=== PATIENT | male | born 1980 | race Caucasian/White ===

== ENCOUNTER 2020-10-04 16:01 | Emergency (ER) | payer SELFPAY ==
[~2020-10-04] VITALS: Ht 182.9 cm; Wt 127.0 kg
[2020-10-04] MEDS ORDERED: KEPPRA (16:09)
[2020-10-04] MEDS ORDERED: METFORMIN (16:09)
[2020-10-04] MEDS ORDERED: AMLODIPINE (16:09)
[2020-10-04] MEDS ORDERED: LEVETIRACETAM 1000MG PREMIX 100 ML IV ONE (16:45)
[2020-10-04] MEDS ORDERED: LORAZEPAM 1MG TABLET PO ONE (16:45)
[2020-10-04 16:50] LABS: BASOPHILS % 0.3 % (0.0-2.0); EOSINOPHILS % 0.7 % (0.0-5.0); HEMATOCRIT. 45.8 % (42.0-52.0); HEMOGLOBIN. 15.4 g/dL (14.0-18.0); LYMPHOCYTES % 27.8 % (20.0-50.0); MEAN CORPUSCULAR HEMOGLOBIN 28.9 pg (28.0-32.0); MEAN CORPUSCULAR VOLUME 85.5 fL (80.0-94.0); MEAN PLATELET VOLUME 9.5 fl (7.4-10.4); MONOCYTES % 4.6 % (2.0-8.0); NEUTROPHILS % 66.6 % (40.0-76.0); PLATELET 263 x1000/uL (130-400); RED BLOOD CELL COUNT 5.35 mill/uL (4.7-6.1); RED CELL DISTRIBUTION WIDTH 13.1 % (11.6-14.6)
[2020-10-04 17:02] LABS: CHLORIDE 97 mEq/L (98-107)
[2020-10-04 17:07] LABS: ETHANOL BLOOD < 10 mg/dL
[2020-10-04] MEDS ORDERED: PROPOFOL 200MG/20ML VIAL IV ONE (17:45)
[2020-10-04] MEDS ORDERED: KETAMINE HCL 50 MG/ML 10ML IV ONE (17:45)
[2020-10-04 22:23] VITALS: BP 141/96
== END 2020-10-04 23:00 | disposition home or self-care (01) ==
LOC: ER 16:18
DX: S43.084A Other dislocation of right shoulder joint, initial encounter (principal); R56.9 Unspecified convulsions; X58.XXXA Exposure to other specified factors, initial encounter; Y93.89 Activity, other specified; Y92.89 Other specified places as the place of occurrence of the external cause; Y99.8 Other external cause status
CPT/HCPCS: 23650; 36415; 73030; 80053; 80320; 85025; 93005; 96365; 99152; 99285; J1953; J2704; J3490; 96375; L3670; G0480